=== PATIENT | female | born 1985 | race American Indian/Alaskan Native ===

== ENCOUNTER 2017-04-16 15:00 | Emergency (ER) | payer OTHER ==
--- NOTE | 2017-04-16 15:39 | Emergency Department Report ---
ED Psych HPI - General Chief Complaint: Psych Stated Complaint: AMS,1013 Time Seen by Provider: 04/16/17 15:35 Source: police, EMS Mode of arrival: Stretcher - History of Present Illness Initial Comments: Patient is a 32 years old female history of schizophrenia brought to the ER for evaluation of possible acute psychosis. Patient was found screaming outside the [facility] with obvious auditory and visual hallucination. Unable to obtain more history from the patient since patient is not answering questions. MD Complaint: altered mental status -: unknown Associated Psychiatric Symptoms: racing thoughts, auditory hallucinations, visual hallucinations, delusions - Related Data Allergies Allergy/AdvReac Type Severity Reaction Status Date / Time No Known Allergies Allergy Unverified 04/16/17 15:15 ED Review of Systems ROS: Stated complaint: AMS,1013 Other details as noted in HPI Comment: Unobtainable due to pts medical conditions ED Past Medical Hx - Past Medical History Hx Psychiatric Treatment: Yes (BiPolar, Schizophrenia) - Social History Smoking Status: Current Every Day Smoker Substance Use Type: Alcohol, Marijuana ED Physical Exam - General Limitations: Altered Mental Status General appearance: alert, in no apparent distress, other (agitated) - Head Head exam: Present: atraumatic, normocephalic, normal inspection - Eye Eye exam: Present: normal appearance, PERRL - ENT ENT exam: Present: normal exam, normal orophraynx, mucous membranes moist - Respiratory Respiratory exam: Present: normal lung sounds bilaterally. Absent: respiratory distress, wheezes, rales, rhonchi, stridor, chest wall tenderness, accessory muscle use, decreased breath sounds, prolonged expiratory - Cardiovascular Cardiovascular Exam: Present: regular rate, normal rhythm, normal heart sounds - GI/Abdominal GI/Abdominal exam: Present: soft, normal bowel sounds. Absent: distended, tenderness, guarding, rebound, rigid, organomegaly, mass, bruit, pulsatile mass , hernia - Extremities Exam Extremities exam: Present: normal inspection, full ROM, normal capillary refill - Back Exam Back exam: Present: normal inspection, full ROM. Absent: tenderness, CVA tenderness (R), CVA tenderness (L), muscle spasm - Neurological Exam Neurological exam: Present: alert, altered, CN II-XII intact, normal gait, reflexes normal - Psychiatric Psychiatric exam: Present: agitated, manic - Skin Skin exam: Present: warm, intact, normal color ED Course Vital Signs 04/16/17 15:15 Temperature 97.4 F L Pulse Rate 123 H Respiratory 17 Rate Blood Pressure 127/88 O2 Sat by Pulse 100 Oximetry Critical care attestation.: If time is entered above; I have spent that time in minutes in the direct care of this critically ill patient, excluding procedure time. ED Disposition Clinical Impression: Acute psychosis Disposition: DC/TX-65 PSY HOSP/PSY UNIT Is pt being admited?: No Condition: Stable Referrals: SUMMER WALLACE MD [Primary Care Provider] - 3-5 Days
[2017-04-16 17:08] LABS: Basophils # (Auto) 0.1 K/mm3 (0.0-0.1); Basophils % (Auto) 0.8 % (0.0-1.8); Eosinophils % (Auto) 0.4 % (0.0-4.3); Hematocrit 42.8 % (30.3-42.9); Hemoglobin 14.1 gm/dl (10.1-14.3); Lymphocytes # (Auto) 1.3 K/mm3 (1.2-5.4); Lymphocytes % (Auto) 13.6 % (13.4-35.0); Mean Corpuscular HGB Conc 33 % (30-34); Mean Corpuscular Hemoglobin 29 pg (28-32); Mean Corpuscular Volume 87 fl (79-97); Monocytes # (Auto) 0.8 K/mm3 (0.0-0.8); Monocytes % (Auto) 8.3 % (0.0-7.3); Platelet Count 255 K/mm3 (140-440); Red Blood Count 4.92 M/mm3 (3.65-5.03); Red Cell Distribution Width 14.2 % (13.2-15.2)
[2017-04-16 17:11] LABS: BUN/Creatinine Ratio 16; Blood Urea Nitrogen 13 mg/dL (7-17); Calcium 9.2 mg/dL (8.4-10.2); Hemolysis Index 5
[2017-04-16] MEDS ORDERED: GEODON IM ONE ×2 (21:28→22:36)
[2017-04-16] MEDS ORDERED: BENADRYL IM ONE (21:28)
[2017-04-16] MEDS ORDERED: ATIVAN IM ONE (21:38)
[2017-04-16] MEDS ORDERED: WATER FOR INJ (PF) 10 ML ONE ×2 (22:36→22:37)
[2017-04-16 22:49] LABS: Bilirubin,Urine NEG (Negative); Blood,Urine SM (Negative); Color,Urine Yellow (Yellow); Mucus,Urine FEW /HPF; Nitrite,Urine NEG (Negative)
[2017-04-16 23:00] LABS: HCG Qualitative,Urine Negative (Negative)
[2017-04-16 23:04] LABS: Amphetamine Screen,Urine PRESUMPTIVE NEGATIVE; Cocaine Screen,Urine PRESUMPTIVE NEGATIVE; Opiate Screen,Urine PRESUMPTIVE NEGATIVE
[2017-04-16] MEDS ORDERED: BENADRYL ONE (23:15)
[2017-04-16 23:22] LABS: Benzodiazepines Screen,Urine PRESUMPTIVE POSITIVE; Cannabinoid Screen,Urine PRESUMPTIVE POSITIVE; Methadone Screen,Urine PRESUMPTIVE POSITIVE
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
[2017-04-17 12:46] LABS: Alanine Aminotransferase 38 units/L (7-56); Lipase 32 units/L (13-60)
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
[2017-04-18] MEDS ORDERED: TYLENOL PO ONE (16:32)
--- NOTE | 2017-04-19 17:50 | Emergency Department Report ---
HPI - General Chief Complaint: Psych Time Seen by Provider: 04/16/17 15:35 ED Past Medical Hx - Past Medical History Hx Psychiatric Treatment: Yes (BiPolar, Schizophrenia) - Social History Smoking Status: Current Every Day Smoker Substance Use Type: Alcohol, Marijuana - Medications Home Medications: Home Medications Medication Instructions Recorded Confirmed Last Taken Type Divalproex Sodium [Depakote] 500 mg PO BID 7 Days #14 tablet. 04/19/17 Unknown Rx Quetiapine Fumarate [SEROquel] 100 mg PO QHS 7 Days #7 tablet 04/19/17 Unknown Rx ED Review of Systems ROS: Stated complaint: AMS,1013 Other details as noted in HPI Physical Exam - Physical Exam Vital Signs: Vital Signs 04/16/17 04/16/17 04/17/17 15:15 17:23 10:30 Temperature 97.4 F L 97.7 F Pulse Rate 123 H 104 H Respiratory 17 18 Rate Blood Pressure 127/88 Blood Pressure 123/73 [Left] O2 Sat by Pulse 100 98 99 Oximetry 04/17/17 04/17/17 04/17/17 12:59 15:00 21:00 Temperature 98.3 F 98.2 F Pulse Rate 99 H 86 Respiratory 16 16 18 Rate Blood Pressure Blood Pressure 120/72 134/98 [Left] O2 Sat by Pulse 99 99 100 Oximetry 04/18/17 04/18/17 04/18/17 10:35 11:50 21:48 Temperature 98.0 F 98.0 F Pulse Rate 86 72 Respiratory 20 20 18 Rate Blood Pressure Blood Pressure 111/78 103/46 [Left] O2 Sat by Pulse 98 98 98 Oximetry 04/19/17 09:48 Temperature Pulse Rate Respiratory Rate Blood Pressure Blood Pressure [Left] O2 Sat by Pulse 100 Oximetry ED Course Vital Signs 04/16/17 04/16/17 04/17/17 15:15 17:23 10:30 Temperature 97.4 F L 97.7 F Pulse Rate 123 H 104 H Respiratory 17 18 Rate Blood Pressure 127/88 Blood Pressure 123/73 [Left] O2 Sat by Pulse 100 98 99 Oximetry 04/17/17 04/17/17 04/17/17 12:59 15:00 21:00 Temperature 98.3 F 98.2 F Pulse Rate 99 H 86 Respiratory 16 16 18 Rate Blood Pressure Blood Pressure 120/72 134/98 [Left] O2 Sat by Pulse 99 99 100 Oximetry 04/18/17 04/18/17 04/18/17 10:35 11:50 21:48 Temperature 98.0 F 98.0 F Pulse Rate 86 72 Respiratory 20 20 18 Rate Blood Pressure Blood Pressure 111/78 103/46 [Left] O2 Sat by Pulse 98 98 98 Oximetry 04/19/17 09:48 Temperature Pulse Rate Respiratory Rate Blood Pressure Blood Pressure [Left] O2 Sat by Pulse 100 Oximetry ED Medical Decision Making - Lab Data Result diagrams: 04/16/17 16:14 04/16/17 16:14 - Medical Decision Making Please see full history and physical by my colleague. I did review psychiatry recommendations. I briefly evaluated Ms. Brice. I agree that she is appropriate for discharge. She has appropriate demeanor. She has very good insight. She denies any wish to harm herself or others. I will prescribe Seroquel and Depakote as recommended. Patient was given outpatient resources. Critical care attestation.: If time is entered above; I have spent that time in minutes in the direct care of this critically ill patient, excluding procedure time. ED Disposition Clinical Impression: Acute psychosis, Bipolar 1 disorder Disposition: DC-01 TO HOME OR SELFCARE Is pt being admited?: No Does the pt Need Aspirin: No Condition: Stable Instructions: Polysubstance Abuse (ED) Prescriptions: Quetiapine Fumarate [SEROquel] 100 mg PO QHS 7 Days #7 tablet Divalproex Sodium [Depakote] 500 mg PO BID 7 Days #14 tablet. Referrals: SUMMER WALLACE MD [Primary Care Provider] - 3-5 Days Time of Disposition: 17:53
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
[2017-04-19 19:10] VITALS: BP 109/81
== END 2017-04-19 19:26 | disposition home or self-care (01) ==
LOC: ED 15:00 → EEVIPCON 15:00 → ED 04-19 19:26
DX: F23 Brief psychotic disorder (principal); F31.9 Bipolar disorder, unspecified; F17.200 Nicotine dependence, unspecified, uncomplicated; F12.10 Cannabis abuse, uncomplicated
CPT/HCPCS: 36415; 80048; 80164; 80307; 81001; 81025; 82150; 83690; 84075; 84450; 84460; 85025; 96372; 99284; G0480; J1200; J2060; J3486; 80320

== ENCOUNTER 2017-04-22 17:58 | Emergency (ER) | payer MEDICAID, OTHER ==
[2017-04-22 18:55] LABS: Basophils % (Auto) 0.4 % (0.0-1.8); Hemoglobin 13.8 gm/dl (10.1-14.3); Lymphocytes # (Auto) 0.7 K/mm3 (1.2-5.4); Lymphocytes % (Auto) 6.8 % (13.4-35.0); Mean Corpuscular HGB Conc 33 % (30-34); Mean Corpuscular Hemoglobin 29 pg (28-32); Mean Corpuscular Volume 88 fl (79-97); Monocytes # (Auto) 0.8 K/mm3 (0.0-0.8); Monocytes % (Auto) 7.9 % (0.0-7.3); Platelet Count 239 K/mm3 (140-440); Red Cell Distribution Width 13.9 % (13.2-15.2)
[2017-04-22 19:15] LABS: BUN/Creatinine Ratio 12; Blood Urea Nitrogen 12 mg/dL (7-17); Calcium 8.6 mg/dL (8.4-10.2); Hemolysis Index 11
[2017-04-22 19:44] LABS: Bilirubin,Urine NEG (Negative); Blood,Urine NEG (Negative); Color,Urine Yellow (Yellow); Hyaline Casts,Urine 1 /LPF; Mucus,Urine 3+ /HPF; Nitrite,Urine NEG (Negative)
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
[2017-04-22 19:55] LABS: Benzodiazepines Screen,Urine PRESUMPTIVE NEGATIVE; Cocaine Screen,Urine PRESUMPTIVE NEGATIVE; Methadone Screen,Urine PRESUMPTIVE NEGATIVE; Opiate Screen,Urine PRESUMPTIVE NEGATIVE
[2017-04-22] MEDS ORDERED: ALUM-MAG HYDROX-SIMETH 200-200-20MG/5ML PO PRN (19:55)
[2017-04-22] MEDS ORDERED: MILK OF MAGNESIA PO PRN (19:55)
[2017-04-22] MEDS ORDERED: TYLENOL PO PRN (19:55)
[2017-04-22 20:06] LABS: Amphetamine Screen,Urine PRESUMPTIVE POSITIVE; Cannabinoid Screen,Urine PRESUMPTIVE POSITIVE
[2017-04-23] MEDS ORDERED: KEFLEX PO ONE (06:44)
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
[2017-04-23 12:04] LABS: Alanine Aminotransferase 27 units/L (7-56); Lipase 24 units/L (13-60)
[2017-04-23] MEDS ORDERED: ATIVAN IM ONE (15:16)
[2017-04-23] MEDS ORDERED: HALDOL IM ONE (15:16)
[2017-04-23] MEDS ORDERED: ATIVAN ONE (15:18)
[2017-04-23 20:46] VITALS: BP 130/72
== END 2017-04-23 22:00 ==
LOC: ED 17:58
DX: F31.9 Bipolar disorder, unspecified (principal); F23 Brief psychotic disorder; F20.9 Schizophrenia, unspecified; F41.9 Anxiety disorder, unspecified; F32.9 Major depressive disorder, single episode, unspecified; F17.200 Nicotine dependence, unspecified, uncomplicated; F14.10 Cocaine abuse, uncomplicated; F12.10 Cannabis abuse, uncomplicated
CPT/HCPCS: 36415; 80048; 80164; 80307; 81001; 82150; 83690; 84075; 84450; 84460; 84703; 85025; 96372; 99284; G0480; J1630; J2060; 80320